=== PATIENT | male | born 1945 | race Caucasian/White ===

== ENCOUNTER → 2017-01-28 11:37 | Outpatient (CLI) | payer MEDICARE, BC | END | disposition home or self-care (01) | LOC: D.MRI 11:37 | DX: M54.5 Low back pain (principal) ==

== ENCOUNTER → 2017-10-03 10:58 | Outpatient (CLI) | payer MEDICARE, BC | END | disposition home or self-care (01) | LOC: D.NM 10:58 | DX: R11.0 Nausea (principal); R14.0 Abdominal distension (gaseous) ==